=== PATIENT | female | born 1940 | race Asian ===

== ENCOUNTER 2019-08-25 20:28 | Emergency (ER) | payer MEDICAID, OTHER ==
[~2019-08-25] VITALS: Ht 154.9 cm; Wt 63.5 kg
[~2019-08-25 20:28] MED LIST: ASPIRIN325 MG ORAL; ATORVASTATIN CA10 MG ORAL; METFORMIN HCL500 M1 ORAL
[2019-08-25 20:30] VITALS: BP 149/77
--- NOTE | 2019-08-25 20:30 | NUR ---
ED Nurse Note: Pt brought in by VIMAL [id number] for c/o R groin pain onset [employer]. Pt states she was on the toilet when she noticed the pain but denies any pain currently in the ED. She denies any trauma. Upon arrival in ED pt has temp of 102.7 and is tach HR 120. Pt is aaox4, breathing is normal and unlabored.
--- NOTE | 2019-08-25 20:32 | Emergency Room Report ---
History of Present Illness General Chief Complaint: Pain Source: Patient, Family Member Present Illness HPI Disclaimer: Please note that this report is being documented using DRAGON technology. This can lead to erroneous entry secondary to incorrect interpretation by the dictating instrument. HPI: 79-year-old female history of hypertension diabetes presents for evaluation of groin pain. Symptoms began prior to arrival. The patient was in the bathroom having a bowel movement when she is felt sudden 10/10 pain in the right groin rating down the right leg. She had had that pain twice more in same area today while using the bathroom. She notes some difficulty passing urine over the past few days but denies hematuria, dysuria, vaginal bleeding or vaginal discharge. She had a hysterectomy in the 1980s but no other abdominal surgeries. Pain is currently resolved. She also notes that she has had a fever and complaining of sweats and chills throughout the day. She took Advil for this and has been controlling it well. She arrives tachycardic and febrile. Denies any recent URI symptoms, cough, vomiting, diarrhea, rash or other symptoms at this time. PMH: Hypertension, hyperlipidemia, diabetes PSH: Hysterectomy Allergies: None reported Social Hx: Denies smoking, alcohol use Allergies: Coded Allergies: No Known Allergies (Unverified , 09/19/14) Nursing Documentation-PMH Past Medical History: No History, Except For Hx Cardiac Problems: No Hx Hypertension: Yes Hx Diabetes: Yes Hx Cancer: No Hx Gastrointestinal Problems: No Hx Neurological Problems: Yes Hx Cerebrovascular Accident: Yes Hx Dizziness: Yes Hx Syncope: Yes Hx Headaches: Yes Hx Numbness: Yes Hx Weakness: Yes Hx Fatigue: Yes Review of Systems All Other Systems: negative except mentioned in HPI Physical Exam Vital Signs Date Time Temp Pulse Resp B/P (MAP) Pulse Ox O2 Delivery O2 Flow Rate FiO2 08/25/19 20:17 102.7 118 20 149/77 (101) 96 Room Air General: Awake and alert, no acute distress, febrile, tachycardic HEENT: NC/AT. EOMI. Neck: Supple, trachea midline Chest Wall: No tenderness, no deformity Cardiovascular: Tachycardic. S1 and S2 normal. No murmur appreciated Resp: Normal work of breathing. No cough, wheezing or crackles appreciated Abdomen: Abdomen is soft, nondistended. No masses appreciated in the right lower quadrant. No rebound. No palpable defect in the abdominal wall. No reproducible tenderness. No overlying skin abnormalities Skin: Intact. No abrasions, laceration or rash over the exposed skin MSK: Normal tone and bulk. Moving all extremities. No obvious deformity. Neuro: Awake and alert. Mentating appropriately. Procedures Critical Care Time Critical Care Time Total critical care time: Approximately 45 minutes Due to a high probability of clinically significant, life threatening deterioration, the patient required the highest level of preparedness to intervene emergently and I personally spent this critical care time directly and personally managing the patient. This critical care time included obtaining a history, examining the patient, pulse oximetry, ordering and reviewing studies , ordering treatments, evaluating response to treatment and updating management plan as needed, frequent reassessment and discussion with other providers as well as arranging for ultimate disposition. This critical to care time was performed to assess and manage the high probability of life-threatening deterioration that could result in multiorgan failure. This critical care time is separate from the separately billable procedures and treating other patients. Medical Decision Making Diagnostic Impression: Primary Impression: UTI (urinary tract infection) Additional Impressions: Lactic acidosis CARMEN (acute kidney injury) ER Course This is a 79-year-old female presenting febrile and tachycardic after complaining of right-sided groin pain now resolved. Differential includes was not limited to viral syndrome, influenza, hernia, bowel obstruction, abdominal abscess, appendicitis, UTI, pyelonephritis, urosepsis. Start broad metabolic infectious work-up. Will send for CT scan of the abdomen. Antipyretics, IV fluids started. Laboratory Tests Test 08/25/19 20:50 08/25/19 21:40 08/25/19 23:40 White Blood Count 11.8 K/UL (4.8-10.8) H Red Blood Count 4.22 M/UL (4.20-5.40) Hemoglobin 11.9 G/DL (12.0-16.0) L Hematocrit 36.5 % (37.0-47.0) L Mean Corpuscular Volume 86 FL (80-99) Mean Corpuscular Hemoglobin 28.2 PG (27.0-31.0) Mean Corpuscular Hemoglobin Concent 32.7 G/DL (32.0-36.0) Red Cell Distribution Width 12.6 % (11.6-14.8) Platelet Count 296 K/UL (150-450) Mean Platelet Volume 5.8 FL (6.5-10.1) L Neutrophils (%) (Auto) % (45.0-75.0) Lymphocytes (%) (Auto) % (20.0-45.0) Monocytes (%) (Auto) % (1.0-10.0) Eosinophils (%) (Auto) % (0.0-3.0) Basophils (%) (Auto) % (0.0-2.0) Differential Total Cells Counted 100 Neutrophils % (Manual) 85 % (45-75) H Lymphocytes % (Manual) 7 % (20-45) L Monocytes % (Manual) 5 % (1-10) Eosinophils % (Manual) 0 % (0-3) Basophils % (Manual) 1 % (0-2) Band Neutrophils 2 % (0-8) Platelet Estimate Adequate Platelet Morphology Normal Red Blood Cell Morphology Normal Sodium Level 132 MMOL/L (136-145) L Potassium Level 3.6 MMOL/L (3.5-5.1) Chloride Level 97 MMOL/L (98-107) L Carbon Dioxide Level 25 MMOL/L (21-32) Anion Gap 10 mmol/L (5-15) Blood Urea Nitrogen 21 mg/dL (7-18) H Creatinine 1.4 MG/DL (0.55-1.30) H Estimate Glomerular Filtration Rate mL/min (>60) Glucose Level 248 MG/DL (74-106) H Lactic Acid Level 3.70 mmol/L (0.4-2.0) H 3.00 mmol/L (0.66-2.22) H Calcium Level 8.5 MG/DL (8.5-10.1) Total Bilirubin 0.5 MG/DL (0.2-1.0) Aspartate Amino Transferase (AST) 12 U/L (15-37) L Alanine Aminotransferase (ALT) 20 U/L (12-78) Alkaline Phosphatase 88 U/L (46-116) Total Creatine Kinase 52 U/L (26-308) Creatine Kinase MB 0.6 NG/ML (0.0-3.6) Creatine Kinase MB Relative Index 1.1 Troponin I 0.000 ng/mL (0.000-0.056) Total Protein 7.2 G/DL (6.4-8.2) Albumin 3.2 G/DL (3.4-5.0) L Globulin 4.0 g/dL Albumin/Globulin Ratio 0.8 (1.0-2.7) L Urine Color Pale yellow Urine Appearance Slightly cloudy Urine pH 5 (4.5-8.0) Urine Specific [place] 1.015 (1.005-1.035) Urine Protein 3+ (NEGATIVE) H Urine Glucose (UA) Negative (NEGATIVE) Urine Ketones Negative (NEGATIVE) Urine Blood 2+ (NEGATIVE) H Urine Nitrite Positive (NEGATIVE) H Urine Bilirubin Negative (NEGATIVE) Urine Urobilinogen Normal MG/DL (0.0-1.0) Urine Leukocyte Esterase 3+ (NEGATIVE) H Urine RBC 10-15 /HPF (0 - 2) H Urine WBC 40-60 /HPF (0 - 2) H Urine Squamous Epithelial Cells Few /LPF (NONE/OCC) Urine Bacteria Many /HPF (NONE) H EKG Diagnostic Results EKG Time: 20:58 Rate: tachycardiac Rhythm: NSR ST Segments: no acute changes Other Impression Sinus tachycardia, normal axis, normal intervals. Incomplete right bundle branch pattern, Q waves inferior leads. No ST segment changes. Rhythm Strip Diag. Results Rhythm Strip Time: 20:58 EP Interpretation: yes Rate: 110s Rhythm: NSR, no PVC's, no ectopy CT/MRI/US Diagnostic Results CT/MRI/US Diagnostic Results : Impression Preliminary Findings Only See Final Report For Complete Findings CT ABDOMEN & PELVIS With Contrast: Findings: Lung bases: Normal Distal Bowen esophagus: Moderate hiatal hernia. Liver: No intrahepatic lesion or ductal dilation. Gallbladder: Normal Spleen: Normal Pancreas: Normal Adrenals: Normal Kidneys: Left kidney mid pole 2.7 cm cyst. Right kidney upper pole nonobstructive 5 mm calcification. Retroperitoneum: Normal caliber of the aorta. Bowel: Small diverticula at the proximal right colon. No right lower quadrant inflammatory change. Scattered colonic stool. Caliber of the small bowel loops is normal. Small periumbilical fat-containing hernia. Pelvis: No pelvic free fluid or mass. Negative for any significant inguinal lymphadenopathy or hernia. Bones: 2 mm grade 1 anterior listhesis of L4 on L5 due to facet arthropathy. Vacuum disc phenomenon is seen. Additional facet arthropathy at L3-4, L4-5 and L5-S1. Impression: 1. Left renal midpole cyst. Right kidney upper pole non-obstructive 5 mm calcification. 2. Moderate hiatal hernia. 3. Lower lumbar spine degenerative changes. 4. No acute intra-abdominal or pelvic finding. Radiologist: Supa Hobbs MD Study ready at 23:01 and initial results transmitted at 23:43 Reevaluation Time: 01:22 Last Vital Signs Date Time Temp Pulse Resp B/P (MAP) Pulse Ox O2 Delivery O2 Flow Rate FiO2 08/25/19 20:17 102.7 118 20 149/77 (101) 96 Room Air Reevaluation Impression Patient found to have an acute urinary tract infection was treated with antibiotics. Creatinine elevated consistent with acute kidney injury and lactate elevated as well consistent with infection. She is receiving IV fluids. Lactate is improving but still elevated. We will continue fluids. She will be admitted to [facility] where she is capitated. Tachycardia is resolved. Stable for transfer. [facility] Condition: Serious Brian Palm MD Aug 25, 2019 20:32
[2019-08-25] MEDS ORDERED: Acetaminophen 500mg (ES) tab ORAL ONE (20:45)
[2019-08-25] MEDS ORDERED: Omnipaque-300 100ml vial INJ PRN (20:45)
[2019-08-25 21:24] LABS: HEMATOCRIT 36.5 % (37.0-47.0); HEMOGLOBIN 11.9 G/DL (12.0-16.0); MEAN CORPUSCULAR VOLUME 86 FL (80-99); PLATELET COUNT 296 K/UL (150-450); RED BLOOD COUNT 4.22 M/UL (4.20-5.40); RED CELL DISTRIBUTION WIDTH 12.6 % (11.6-14.8); WHITE BLOOD COUNT 11.8 K/UL (4.8-10.8)
--- NOTE | 2019-08-25 21:40 | NUR ---
ED Nurse Note: Pt able to ambulate to restroom with assistance, steady gait. Urine specimen provided and sent to lab.
[2019-08-25 21:48] LABS: ANION GAP 10 mmol/L (5-15); BLOOD UREA NITROGEN 21 mg/dL (7-18); CALCIUM 8.5 MG/DL (8.5-10.1); CARBON DIOXIDE 25 MMOL/L (21-32); CHLORIDE 97 MMOL/L (98-107); CREATININE 1.4 MG/DL (0.55-1.30); POTASSIUM 3.6 MMOL/L (3.5-5.1); SODIUM 132 MMOL/L (136-145)
[2019-08-25 22:01] LABS: ALANINE AMINOTRANSFERASE 20 U/L (12-78); ALBUMIN 3.2 G/DL (3.4-5.0); ALBUMIN/GLOBULIN RATIO 0.8 (1.0-2.7); ALKALINE PHOSPHATASE 88 U/L (46-116); ASPARTATE AMINO TRANSFERASE 12 U/L (15-37); BILIRUBIN,TOTAL 0.5 MG/DL (0.2-1.0); CKMB 0.6 NG/ML (0.0-3.6); CREATINE KINASE 52 U/L (26-308)
[2019-08-25 22:30] LABS: APPEARANCE,URINE SLIGHTLY CLOUDY; BILIRUBIN, URINE NEGATIVE (NEGATIVE); COLOR,URINE PALE YELLOW; GLUCOSE, URINE (UA) NEGATIVE (NEGATIVE); KETONES,URINE NEGATIVE (NEGATIVE); LEUKOCYTE ESTERASE ,URINE 3+ (NEGATIVE); NITRITE,URINE POSITIVE (NEGATIVE); PH,URINE 5 (4.5-8.0); PROTEIN,URINE 3+ (NEGATIVE); UROBILINOGEN,URINE NORMAL MG/DL (0.0-1.0)
--- NOTE | 2019-08-25 23:40 | NUR ---
ED Nurse Note: Repeat lactic drawn and sent to lab.
[2019-08-25 23:41] VITALS: BP 110/46
--- NOTE | 2019-08-25 23:44 | Diagnostic Imaging Report ---
Clinical Indication: Right groin pain Technique: No oral contrast utilized, per emergency room physician request IV administration nonionic contrast. Venous phase spiral acquisition obtained through the abdomen and pelvis. Multiplanar reconstructions were generated. Total dose length product 1104 mGycm. CTDIvol(s) 18 mGy. Dose reduction achieved using automated exposure control Comparison: none Findings: Short but otherwise normal appendix is demonstrated. There are colonic diverticula. No evidence of acute diverticulitis. No small bowel distention. No free or loculated intraperitoneal gas or fluid is evident. There is a small sliding-type hiatal hernia. Distal esophagus, stomach, duodenum are otherwise unremarkable. There is a tiny fat-containing umbilical hernia. The liver, gallbladder, bile ducts, pancreas, spleen, adrenals are unremarkable. There are a few accessory splenules. A 7 mm calcification is seen in the upper pole of the right kidney. This may be calyceal, but could also be dystrophic cortical calcification as there is evidence of some associated scarring. The left kidney demonstrates a 2.7 cm parapelvic cyst. No ureteral calculi, hydronephrosis, or hydroureter demonstrated. The bladder demonstrates a few diverticula on the right. There is a 2 mm calcification projected at the floor the bladder. Uncertain as to whether this is within the bladder lumen of the bladder wall. The uterus is absent. No pelvic mass or adenopathy. No retroperitoneal or mesenteric mass or adenopathy. The included lung bases are clear, although somewhat degraded by motion artifact. The heart is borderline enlarged. The bones demonstrate mild degenerative spondylosis changes Impression: No definite acute abnormality Calcification projected at the bladder floor, may be intramural or could represent a recently passed stone Calcification in the upper pole of the right kidney, could represent a nonobstructive calyceal calculus or a dystrophic parenchymal calcification associated with a small scar Bladder diverticulum Borderline cardiomegaly Colonic diverticulosis Other findings as noted, including evidence of prior hysterectomy, degenerative spondylosis, prior hysterectomy, hiatal hernia, small fat-containing umbilical hernia This agrees with the preliminary interpretation provided overnight by [facility]eradiology service. The CT scanner at [facility] is accredited by the [employer] and the scans are performed using protocols designed to limit radiation exposure to as low as reasonably achievable to attain images of sufficient resolution adequate for diagnostic evaluation.
[2019-08-25] MEDS ORDERED: cefTRIAXone 1 GM in NS 55 ML IVPB ONE (23:45)
[2019-08-25] MEDS ORDERED: Vancomycin 1 GM in NS 275 ML IVPB ONE (23:45)
[2019-08-26 00:30] VITALS: BP 106/52
--- NOTE | 2019-08-26 01:00 | NUR ---
ED Nurse Note: Pt sleeping in bed, comfortably at this time. IV antibx infusing as ordered by ERMD. Pt c/o no pain. No acute distress noted. Pt family member at bedside.
[2019-08-26 03:00] VITALS: BP 110/50
--- NOTE | 2019-08-26 03:40 | NUR ---
ED Nurse Note: Report given to ELY Armas at [place].
[2019-08-26 04:15] VITALS: BP 112/68
--- NOTE | 2019-08-26 04:15 | NUR ---
ED Nurse Note: Pt stable for transfer to [facility] per ERMD. Pt is aaox4, no cardiac or respiratory distress. Pt agrees with transfer. Report given to [facility]. Pt able to ambulate to [facility] with steady gait. Pt belongings taken with pt.
--- NOTE | 2019-08-26 15:25 | Diagnostic Imaging Report ---
Indication: Chest pain Technique: One view of the chest Comparison: 09/19/2014 Findings: No acute infiltrates, effusions, or congestion. Tortuous calcified aorta. Normal heart size. Upper mediastinum unremarkable. Calcification granuloma is again demonstrated in the right midlung No significant interim change Impression: No acute process. Evidence of old granulomatous disease
== END 2019-08-26 04:15 | disposition short-term general hospital (02) ==
LOC: EDBD 20:28 → EMR 22:36
DX: N39.0 Urinary tract infection, site not specified (principal); E87.2 Acidosis; N17.9 Acute kidney failure, unspecified; I10 Essential (primary) hypertension; E11.9 Type 2 diabetes mellitus without complications; E78.5 Hyperlipidemia, unspecified; Z86.73 Personal history of transient ischemic attack (TIA), and cerebral infarction without residual deficits; Z90.710 Acquired absence of both cervix and uterus
CPT/HCPCS: 36415; 71045; 74177; 80053; 81003; 82550; 82553; 83605; 84484; 85007; 85025; 86710; 87040; 87086; 87181; 93005; 96361; 96365; 96367; 99285; J0696; J3370; J7030; J7050; Q9967